=== PATIENT | female | born 1965 | race Caucasian/White ===

== ENCOUNTER → 2023-08-28 14:26 | Outpatient (REF) | payer BC, SELFPAY | LOC: WDC 14:26 | PROVIDERS: ATTENDING PHYSICIAN Obstetrics & Gynecology Gynecology; FAMILY PHYSICIAN Family Medicine; REFERRING PHYSICIAN Internal Medicine Hematology & Oncology | DX: Z12.31 Encounter for screening mammogram for malignant neoplasm of breast (principal); R92.8 Other abnormal and inconclusive findings on diagnostic imaging of breast | CPT/HCPCS: 76642; 77063; 77067 ==

== ENCOUNTER → 2023-09-08 06:49 | Outpatient (REF) | payer BC, SELFPAY ==
[2023-09-08 07:23] LABS: % Basophils 0.5 % (0-2); % Eosinophils 1.1 % (0-6); % Immature Granulocytes 0.3 % (0-0.5); % Lymphocytes 40.5 % (20.5-51.1); % Monocytes 6.6 % (1.7-9.3); Absolute Eosinophils 0.1 10^3/uL (0-0.7); Absolute Monocytes 0.5 10^3/uL (0.1-0.6); Absolute Neutrophils 3.7 10^3/uL (1.4-6.5); Hematocrit 40.1 % (37.0-47.0); Hemoglobin 13.2 g/dL (12.0-16.0); Mean Corp Hgb Conc. 32.9 g/dL (33.0-37.0); Mean Corpuscular Hgb 30.1 pg (27.0-31.0); Mean Corpuscular Volume 91.3 fL (81.0-99.0); Mean Platelet Volume 9.5 fL (7.4-10.4); Nucleated Red Blood Cells % 0 %; Platelet Count 215 10^3/uL (130-400); Red Blood Cell Count 4.39 10^6/uL (4.20-5.40); Red Cell Dist. Width 12.9 % (11.5-14.5); White Blood Cell Count 7.3 10^3/uL (4.8-10.8)
[2023-09-08 07:56] LABS: ALT (SGPT) 22 U/L (0-35); AST (SGOT) 29 U/L (14-36); Albumin 4.2 g/dl (3.5-5.0); Alkaline Phosphatase 75 U/L (38-126); Blood Urea Nitrogen 17 mg/dl (7-17); Calcium 9.1 mg/dl (8.4-10.2); Carbon Dioxide 28 mmol/L (22-30); Chloride 103 mmol/L (98-107); Glucose 101 mg/dl (70-99); Sodium 136 mmol/L (135-145); Total Bilirubin 0.5 mg/dl (0.2-1.3); Total Protein 6.9 g/dl (6.3-8.2); eGFR > 60.00
== END ==
LOC: REG 06:49
PROVIDERS: ATTENDING PHYSICIAN Internal Medicine Hematology & Oncology
DX: C50.812 Malignant neoplasm of overlapping sites of left female breast (principal)
CPT/HCPCS: 36415; 80053; 85025

== ENCOUNTER → 2023-12-06 08:58 | Outpatient (REF) | payer BC, SELFPAY ==
[2023-12-06 10:23] LABS: % Basophils 0.6 % (0-2); % Eosinophils 1.7 % (0-6); % Immature Granulocytes 0.2 % (0-0.5); % Lymphocytes 45.6 % (20.5-51.1); % Monocytes 6.8 % (1.7-9.3); % Neutrophils 45.1 % (42.2-75.2); Absolute Eosinophils 0.1 10^3/uL (0-0.7); Absolute Lymphocytes 2.5 10^3/uL (1.2-3.4); Absolute Monocytes 0.4 10^3/uL (0.1-0.6); Absolute Neutrophils 2.5 10^3/uL (1.4-6.5); Hematocrit 38.2 % (37.0-47.0); Hemoglobin 12.9 g/dL (12.0-16.0); Mean Corp Hgb Conc. 33.8 g/dL (33.0-37.0); Mean Corpuscular Hgb 29.4 pg (27.0-31.0); Mean Platelet Volume 9.6 fL (7.4-10.4); Nucleated Red Blood Cells % 0 %; Platelet Count 245 10^3/uL (130-400); Red Blood Cell Count 4.39 10^6/uL (4.20-5.40); Red Cell Dist. Width 13.1 % (11.5-14.5); White Blood Cell Count 5.4 10^3/uL (4.8-10.8)
[2023-12-06 10:53] LABS: ALT (SGPT) 34 U/L (0-35); AST (SGOT) 45 U/L (14-36); Albumin 4.1 g/dl (3.5-5.0); Alkaline Phosphatase 86 U/L (38-126); Blood Urea Nitrogen 14 mg/dl (7-17); Calcium 9.2 mg/dl (8.4-10.2); Carbon Dioxide 27 mmol/L (22-30); Chloride 107 mmol/L (98-107); Glucose 81 mg/dl (70-99); Potassium 4.5 mmol/L (3.5-5.1); Sodium 139 mmol/L (135-145); Total Bilirubin 0.6 mg/dl (0.2-1.3); Total Protein 6.6 g/dl (6.3-8.2); eGFR > 60.00
== END ==
LOC: REG 08:58
PROVIDERS: ATTENDING PHYSICIAN Obstetrics & Gynecology Gynecology; FAMILY PHYSICIAN Family Medicine
DX: Z01.818 Encounter for other preprocedural examination (principal)
CPT/HCPCS: 36415; 80053; 85025

== ENCOUNTER → 2023-12-12 14:48 | Outpatient (REF) | payer BC, SELFPAY | LOC: CLAB 14:48 | PROVIDERS: ATTENDING PHYSICIAN Obstetrics & Gynecology Gynecology | DX: N84.0 Polyp of corpus uteri (principal); N95.0 Postmenopausal bleeding; R93.89 Abnormal findings on diagnostic imaging of other specified body structures | CPT/HCPCS: 88305 ==

== ENCOUNTER → 2024-02-03 14:18 | Outpatient (REF) | payer BC, SELFPAY | LOC: HWRAD 14:18 | PROVIDERS: ATTENDING PHYSICIAN Family Medicine | DX: E04.1 Nontoxic single thyroid nodule (principal) | CPT/HCPCS: 76536 ==

== ENCOUNTER → 2024-03-24 14:55 | Outpatient (REF) | payer BC, SELFPAY | LOC: WDC 14:55 | PROVIDERS: ATTENDING PHYSICIAN Obstetrics & Gynecology Gynecology; FAMILY PHYSICIAN Family Medicine | DX: R92.8 Other abnormal and inconclusive findings on diagnostic imaging of breast (principal) | CPT/HCPCS: 76642 ==

== ENCOUNTER → 2024-04-15 13:09 | Outpatient (REF) | payer BC, SELFPAY | LOC: HWRAD 13:09 | PROVIDERS: ATTENDING PHYSICIAN Obstetrics & Gynecology Gynecology; FAMILY PHYSICIAN Family Medicine | DX: N95.0 Postmenopausal bleeding (principal); N84.0 Polyp of corpus uteri | CPT/HCPCS: 76830; 76856 ==

== ENCOUNTER → 2024-04-21 11:13 | Outpatient (REF) | payer BC, SELFPAY | LOC: RAD 11:13 | PROVIDERS: ATTENDING PHYSICIAN Obstetrics & Gynecology Gynecology; FAMILY PHYSICIAN Family Medicine | DX: N95.0 Postmenopausal bleeding (principal); N84.0 Polyp of corpus uteri | CPT/HCPCS: 58340; 76831 ==

== ENCOUNTER 2024-05-14 06:23 | Day surgery (SDC) | payer BC, SELFPAY | END 2024-05-14 14:35 | disposition home or self-care (01) | LOC: GI 06:23 | PROVIDERS: ATTENDING PHYSICIAN Internal Medicine Gastroenterology | DX: Z12.11 Encounter for screening for malignant neoplasm of colon (principal); K57.30 Diverticulosis of large intestine without perforation or abscess without bleeding; K64.8 Other hemorrhoids; Z86.0100 Personal history of colon polyps, unspecified | CPT/HCPCS: G0105 ==

== ENCOUNTER 2024-08-20 06:13 | Day surgery (SDC) | payer BC, SELFPAY ==
[2024-06-25 08:44] LABS: % Basophils 0.4 % (0-2); % Eosinophils 1.3 % (0-6); % Immature Granulocytes 0.3 % (0-0.5); % Lymphocytes 28.2 % (20.5-51.1); % Monocytes 6.8 % (1.7-9.3); Absolute Eosinophils 0.1 10^3/uL (0-0.7); Absolute Lymphocytes 2.5 10^3/uL (1.2-3.4); Absolute Monocytes 0.6 10^3/uL (0.1-0.6); Absolute Neutrophils 5.6 10^3/uL (1.4-6.5); Hematocrit 40.3 % (37.0-47.0); Mean Corp Hgb Conc. 32.3 g/dL (33.0-37.0); Mean Platelet Volume 9.5 fL (7.4-10.4); Nucleated Red Blood Cells % 0 %; Platelet Count 230 10^3/uL (130-400); Red Blood Cell Count 4.48 10^6/uL (4.20-5.40); Red Cell Dist. Width 12.6 % (11.5-14.5)
[2024-06-25 09:11] LABS: ALT (SGPT) 20 U/L (0-35); AST (SGOT) 27 U/L (14-36); Albumin 4.4 g/dl (3.5-5.0); Alkaline Phosphatase 82 U/L (38-126); Blood Urea Nitrogen 14 mg/dl (7-17); Calcium 8.6 mg/dl (8.4-10.2); Carbon Dioxide 32 mmol/L (22-30); Chloride 101 mmol/L (98-107); Glucose 93 mg/dl (70-99); Potassium 4.4 mmol/L (3.5-5.1); Sodium 141 mmol/L (135-145); Total Bilirubin 0.8 mg/dl (0.2-1.3); Total Protein 7.2 g/dl (6.3-8.2); eGFR > 60.00
[2024-06-25 14:08] VITALS: BMI 31.5
--- NOTE | 2024-06-28 15:52 | PTCARENOTE ---
Abnormal ECG 06/25/[address] Wiggins, no further intervention.
[2024-08-20] VITALS (16 sets, daily range): BP systolic 104–124; BP diastolic 62–83; BMI 31.5
[2024-08-20] MEDS: NORMOSOL-R/PLASMALYTE-A 1000 IV (10:26)
[2024-08-20] MEDS: TYLENOL 1000 MG PO (11:27)
[2024-08-20] MEDS: SUBLIMAZE 25 MCG IV (17:29)
[2024-08-20] MEDS: MORPHINE PCA 30 IV (18:10)
[2024-08-20] MEDS: TORADOL 15 MG IV (18:15)
[2024-08-20] MEDS: NSS 1000 IV (18:18)
--- NOTE | 2024-08-20 19:31 | SUR.PHASEI ---
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 Family in waiting area, hand off at bedside
--- NOTE | 2024-08-20 20:10 | PTCARENOTE ---
Pt arrived to [facility] from PACU in a bed. Pt has 3 incisions with steri strips, gauze and bandaids. Pt has a Main in place putting out yellow urine. Pt has IVF infusing at 125mL/hr and a Morphine POLITICAL ADVISOR pump (see MAR). Pt placed on continuous pulse ox
and on 2L of o2 to maintain o2 above 92%. Bed locked and in lowest position. Call sevilla within reach. Pt oriented to room. Admission questions answered by pt. Care ongoing.
[2024-08-20] MEDS: HEPARIN 5000 UNITS SC (20:56)
[2024-08-20] MEDS: ANCEF 10 IV (20:58)
[2024-08-20 22:19] LABS: Hemoglobin 11.9 g/dL (12.0-16.0)
[2024-08-20] MEDS: SINGULAIR 10 MG PO (22:28)
[2024-08-20] MEDS: NEURONTIN 300 MG PO (22:28)
[2024-08-20] MEDS: CLARITIN 10 MG PO (22:28)
[2024-08-21] MEDS: TORADOL 15 MG IV ×3 (00:46→11:33)
[2024-08-21] MEDS: NSS 1000 IV ×2 (02:49→11:31)
[2024-08-21 03:01] VITALS: BP 102/64
[2024-08-21] MEDS: ANCEF 10 IV (04:59)
--- NOTE | 2024-08-21 07:06 | W.PN.GYN.DG ---
Today's Communication / Plan
-
Advance diet
Await am CBC
Stop IVF
Stop IV antibiotic
PO pain meds
Plan d/c to home after dinner
Ambulate
PT may shower
Assessment / Plan
-
Assessment:
POD #1 LAVH/BSO
Plan:
Advance diet
Await am CBC
Stop IVF
Stop IV antibiotic
PO pain meds
Plan d/c to home after dinner
Ambulate
PT may shower
Subjective / Objective Data
Subjective Data
Pt doing well - good pain control + flatus this am
Objective Data
Vital Signs
Temp Pulse Resp BP Pulse Ox
98.3 F 68 15 102/64 96
08/21/24 03:01 08/21/24 03:01 08/21/24 04:00 08/21/24 03:01 08/21/24 04:00
Intake & Output
08/20/24 08/21/24 08/22/24
06:59 06:59 06:59
Intake Total 322 / 322
Output Total 335 / 335
Balance -13 / -13
Intake:
Oral fluids 20 / 20
IV fluids (Total) 302 / 302
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
normosol 250 / 250
nss 50 / 50
Output:
Urine, Main 335 / 335
Physical Exam
-
Cardiac: Regular rate & rhythm
Lungs: Clear: Bilateral
Abdomen: Soft and Nontender
Bowel Sounds: Normal
Extremities: No Calf Tenderness and No Edema
Incision: Clean, Dry and Intact
Data Reviewed
-
Lab Data
06/25/24 08:18
--- NOTE | 2024-08-21 07:20 | W.DS.TRANS ---
DC Summary - Groundskeeping Maintenance
-
Discharge Instructions:
Sleep Apnea Risk Low
Discharge Diagnosis/Procedures s/p LAVH/BSO
Diet No restrictions
Activity No strenuous activity
Additional Activity Nothing in vagina
Driving Restrictions No driving for 2 weeks
Bathing Restrictions OK to Shower
Instructions:
Stand-Alone Forms:
Changes to Home Medications: No
Discharge Medications:
DC Medications w/original date entered in [facility]
omeprazole 20 mg capsule,delayed release 20 mg PO DAILY 11/29/18
aspirin 81 mg tablet,delayed release 81 mg PO DAILY 06/25/24
desvenlafaxine succinate 100 mg tablet,extended release 24 hr 100 mg PO DAILY 06/25/24
gabapentin 300 mg capsule 300 mg PO HS 06/25/24
loratadine-pseudoephedrine ER 10 mg-240 mg tablet,extended [id number] (Claritin-D 24 Hour) 1 tab PO HS 06/25/24
montelukast 10 mg tablet 10 mg PO HS 06/25/24
multivitamin 1 tab PO DAILY 06/25/24
semaglutide (weight loss) 2.4 mg/0.75 mL subcutaneous pen injector (Wegovy) 2.4 mg SC WEEKLY 06/25/24
fluticasone propionate 50 mcg/actuation nasal spray,suspension 1 spray intranasal DAILY 08/16/24
azelastine 137 mcg-fluticasone 50 mcg/spray nasal spray 1 spray intranasal HS 08/20/24
Home Medication Changes
Pending Results: No
[2024-08-21 07:30] VITALS: BP 103/64
[2024-08-21 07:52] LABS: % Basophils 0.1 % (0-2); % Immature Granulocytes 0.3 % (0-0.5); % Lymphocytes 18.2 % (20.5-51.1); % Monocytes 6.3 % (1.7-9.3); % Neutrophils 75.1 % (42.2-75.2); Absolute Lymphocytes 1.7 10^3/uL (1.2-3.4); Absolute Monocytes 0.6 10^3/uL (0.1-0.6); Hematocrit 31.7 % (37.0-47.0); Hemoglobin 10.6 g/dL (12.0-16.0); Mean Corp Hgb Conc. 33.4 g/dL (33.0-37.0); Mean Corpuscular Hgb 29.9 pg (27.0-31.0); Mean Corpuscular Volume 89.3 fL (81.0-99.0); Mean Platelet Volume 9.8 fL (7.4-10.4); Nucleated Red Blood Cells % 0 %; Platelet Count 213 10^3/uL (130-400); Red Blood Cell Count 3.55 10^6/uL (4.20-5.40); Red Cell Dist. Width 13.2 % (11.5-14.5); White Blood Cell Count 9.3 10^3/uL (4.8-10.8)
[2024-08-21] MEDS: HEPARIN 5000 UNITS SC (08:17)
[2024-08-21] MEDS: PERCOCET 5/325 1 TABLET PO ×2 (08:17→16:56)
[2024-08-21 11:32] VITALS: BP 103/67
[2024-08-21 15:22] VITALS: BP 114/64
--- NOTE | 2024-08-21 17:02 | CM ---
Addendum entered by Genesis Harden RN 08/21/24 17:05:
See initial assessment checklist for details.
Original Note:
Patient who is s/p LAVH/BSO.
Met with patient who was preparing for discharge.
The patient says she feels ready for discharge home today. Her will provide transport home.
No CM d/c needs identified.
Plan home today.
[2024-08-21] MEDS: NSS IV (17:51)
== END 2024-08-21 18:07 | disposition home or self-care (01) ==
LOC: SDS 06:13
PROVIDERS: ATTENDING PHYSICIAN Obstetrics & Gynecology Gynecology; FAMILY PHYSICIAN Family Medicine
DX: N84.0 Polyp of corpus uteri (principal); N80.03 Adenomyosis of the uterus; N95.0 Postmenopausal bleeding; N73.6 Female pelvic peritoneal adhesions (postinfective)
CPT/HCPCS: 58571; 88307; 36415; 80053; 85014; 85018; 85025; 86850; 86900; 86901; 93005; C1776

== ENCOUNTER → 2024-08-31 14:53 | Outpatient (REF) | payer BC, SELFPAY | LOC: WDC 14:53 | PROVIDERS: ATTENDING PHYSICIAN Obstetrics & Gynecology Gynecology; FAMILY PHYSICIAN Family Medicine | DX: Z12.31 Encounter for screening mammogram for malignant neoplasm of breast (principal); Z85.3 Personal history of malignant neoplasm of breast | CPT/HCPCS: 77063; 77067 ==